=== PATIENT | female | born 1980 | race Caucasian/White ===

== ENCOUNTER 2016-06-01 06:23 | Inpatient (IN) | payer OTHER ==
[2016-06-01 06:47] VITALS: BMI 30.9
[2016-06-01] MEDS ORDERED: ONDANSETRON 4 MG/2ML 2 ML VIAL IV PRN ×2 (11:27→20:15)
[2016-06-01] MEDS ORDERED: DIPHENHYDRAMINE HCL 50 MG/1 ML VIAL IV PRN ×2 (11:27→20:15)
[2016-06-01] MEDS ORDERED: LACTATED RINGERS 1,000 ML IV PRN (11:27)
[2016-06-01] MEDS ORDERED: OXYTOCIN IN LR 500 ML IV ONE ×2 (11:27→12:22)
[2016-06-01] MEDS ORDERED: EPHEDRINE SULFATE 50 MG/ML 1ML VIAL IV PRN ×2 (11:27→20:15)
[2016-06-01] MEDS ORDERED: METOCLOPRAMIDE HCL 5 MG/ML 2ML VIAL IV PRN (11:27)
[2016-06-01] MEDS ORDERED: NALOXONE HCL 0.4 MG/ML VIAL IV PRN ×2 (11:27→20:15)
[2016-06-01] MEDS ORDERED: FENTANYL 100 MCG/2 ML VIAL IV PRN (11:30)
[2016-06-01] MEDS ORDERED: OXYTOCIN 10 UNITS/ML VIAL ONE (12:22)
[2016-06-01] MEDS ORDERED: MINERAL OIL 25 ML BOT ONE (12:22)
[2016-06-01] MEDS ORDERED: IV START KIT ONE (12:22)
[2016-06-01] MEDS ORDERED: LIDOCAINE Viscous 2% 15 ML UDCUP ONE (12:22)
[2016-06-01] MEDS ORDERED: PUMP TUBING ONE (12:22)
[2016-06-01] MEDS ORDERED: LIDOCAINE 1% (PRES FREE) 30 ML VIAL ONE (12:22)
[2016-06-01] MEDS ORDERED: LACTATED RINGERS 1,000 ML ONE (12:23)
[2016-06-01 13:14] LABS: HEMATOCRIT 36.3 % (37.0-47.0); HEMOGLOBIN 12.1 gm/l (12.0-16.0); MEAN CELL VOLUME 81.8 fl (81.0-99.0); MEAN CORPUSCULAR HEMOGLOBIN 27.3 pg (27.0-31.0); MEAN CORPUSCULAR HGB CONC 33.3 g/dl (33.0-37.0); RED CELL DISTRIBUTION WIDTH 12.2 % (11.5-14.5)
[2016-06-01] MEDS ORDERED: FENTANYL/ROPIVACAINE EPIDURAL 250 ML EP ONE (19:09)
[2016-06-01] MEDS ORDERED: EPIDURAL PUMP SET ONE (19:09)
[2016-06-01] MEDS ORDERED: EPIDURAL PROCEDURE TRAY ONE (19:28)
[2016-06-01] MEDS ORDERED: SODIUM CHLORIDE 0.9% 500 ML IV PRN (20:15)
[2016-06-01] MEDS ORDERED: NALBUPHINE HCL 20 MG/ML AMP IV PRN (20:15)
[2016-06-01] MEDS: FENTANYL/ROPIVACAINE EPIDURAL 250 ML EP SCH (20:15)
[2016-06-01] MEDS ORDERED: LACTATED RINGERS 500 ML IV PRN (20:15)
[2016-06-01] MEDS: OXYTOCIN IN LR 500 ML IV PRN ×3 (22:28→23:20)
--- NOTE | 2016-06-01 22:32 | PCMAN ---
OB Admission Note - History : 3 Term: 1 : 0 Abortions (S&E): 1 Livin Gestational Age (weeks): 41 Days (#/7): 0 Admit Cervical Dilation:: 4 Admit Cervical Effacement (%):: 80 Admit Station:: -2 Admit Presentaton:: cephalic Membrane Status: Intact Labor Onset (Date): 06/01/16 Labor Onset (Time): 05:00 Contractions: Yes Contraction Frequency:: 6-7 - Labs Blood Type: O (+) positive Rubella Status: Immune GBS Status: Negative Abnormal Labs: None - Review of Systems negative 12 system ROS - Problems (1) Active labor at term Status: Acute Code: [id number]/Plan: This is a late entry. Pt admitted around 0900 today. She was making consistent cervical change after 2 hours of ambulation and venu every 6- 7min. She was admitted for expectant management. Around 18:30 she was AROMed Epidural placed around 1900 IUPC placed at 20:30 - starting pit and titrating up to adequacy currently. Last check was /
[2016-06-02] MEDS ORDERED: MINERAL OIL 25 ML BOT TP ONE (03:59)
[2016-06-02] MEDS ORDERED: LANOLIN 50 APPLIC/7G TUBE TP PRN ×2 (04:52→09:30)
[2016-06-02] MEDS ORDERED: MEASLES,MUMPS&RUBELLA VACCINE 0.5 ML VIAL SUB-Q V ONE (04:52)
[2016-06-02] MEDS ORDERED: BENZOCAINE/MENTHOL 60 APPLIC/BOT TP PRN ×2 (04:52→09:30)
[2016-06-02] MEDS ORDERED: CALCIUM CARBONATE 500 MG TAB.CHEW PO PRN ×2 (04:52→09:30)
[2016-06-02] MEDS ORDERED: OXYCODONE HCL 5 MG TABLET PO PRN ×2 (04:52→09:30)
[2016-06-02] MEDS ORDERED: IBUPROFEN 800 MG TABLET PO PRN (04:52)
[2016-06-02] MEDS ORDERED: HYDROCODONE/ACETAMINOPHEN 5/325MG TABLET PO PRN ×2 (04:52→09:30)
[2016-06-02] MEDS ORDERED: FLU VACC 2016-17 (36MO-64Y)/PF 60 MCG/0.5 ML SYRINGE IM V ONE (05:23)
[2016-06-02] MEDS: IBUPROFEN 800 MG TABLET PO PRN ×3 (08:06→21:15)
[2016-06-02] MEDS ORDERED: DOCUSATE SODIUM 100 MG CAPSULE PO SCH (09:00)
--- NOTE | 2016-06-02 09:40 | PCMDEL ---
Delivery Note - Labor 1st stage (hr/min):: 6 hours 2nd stage (hr/min):: 3 hours 3rd stage (hr/min):: 14 min. Total (hr/min):: 9 hours 14 min. Pushed (hr/min):: 30 min. - Delivery Delivery (Date): 06/02/16 Delivery (Time): 04:12 Infant Gender: Female Length: 1 ft 7.75 in Presentation: Cephalic Position: OA Umbilical Cord: 3 Vessel, Nuchal Cord (x2) Delayed Cord Clamping:: Not Performed (Clamped and cut at perineum 2/2 irreducible nuchal chord) 1 Minute Total: 5 5 Minute Total: 9 Placenta:: Delivered intact at 04:26 EBL:: 400 Perineum:: 2nd degree laceration repaired in the usual fashion Suture:: 4-0 vicryl on an SH needle Anesthesia/Meds:: Epidural Length ROM:: AROM at 18:45 --> 9 hours 30 min. Comments:: Baby required resuscitation at the warmer for approx. 10 min. following delivery likely 2/2 the tight nuchal cord x2.
[2016-06-02] MEDS: DOCUSATE SODIUM 100 MG CAPSULE PO SCH (22:40)
[2016-06-03] MEDS: FENTANYL/ROPIVACAINE EPIDURAL 250 ML EP SCH ×3 (07:12→07:15)
[2016-06-03] MEDS: LACTATED RINGERS 1,000 ML IV SCH ×2 (07:14→07:15)
[2016-06-03] MEDS: DOCUSATE SODIUM 100 MG CAPSULE PO SCH (08:17)
[2016-06-03] MEDS: IBUPROFEN 800 MG TABLET PO PRN ×3 (08:17→20:13)
--- NOTE | 2016-06-03 10:39 | PDOC44 ---
- Subjective Day: 1 Reports Flatus, Reports Pain Tolerable, Reports , Reports Lochia Moderate, Reports Tolerating Clear Liquids, Reports Tolerating Regular Diet - Objective Temp Pulse Resp BP Pulse Ox 97.5 F 85 16 113/70 06/03/16 08:28 06/03/16 08:28 06/03/16 08:28 06/03/16 08:28 Current Medications Generic Name Dose Route Start Last Admin Trade Name Freq PRN Reason Stop Dose Admin Acetaminophen/Hydrocodone Bitart 1 - 2 tab 06/02/16 09:30 [place] 5/325 PO Q4H PRN Pain (Moderate) Benzocaine/Menthol 1 applic 06/02/16 09:30 Dermoplast TP PRN PRN Patient Comfort Calcium Carbonate/Glycine 500 - 1,000 mg 06/02/16 09:30 Tums PO BID PRN Indigestion Docusate Sodium 100 mg 06/02/16 09:30 06/03/16 08:17 Colace PO 100 mg DAILY AVILA Administration Emollient Ointment 1 applic 06/02/16 09:30 [id number] TP PRN PRN sore nipples Ropivacaine/Fentanyl/NS 250 mls @ 0 mls/hr 06/01/16 20:15 06/03/16 07:12 Fentanyl 2 Mcg/Ml + Ropivacaine 0.125% Ep Bag EP Not Given EPI [facility] Protocol Per Protocol Ibuprofen 800 mg 06/02/16 07:50 06/03/16 08:17 Motrin PO 800 mg Q6H PRN Administration Pain Oxycodone HCl 5 - 10 mg 06/02/16 09:30 Roxicodone PO Q3H PRN Pain (Severe) Sodium Chloride 10 ml 06/02/16 09:30 Normal Saline 10ml Flush IV PRN PRN IV Flush - Physical Exam General: Afebrile, No Acute Distress Psych/Mental Status: Mood/Affect Appropriate, Bonding Well Neurological: Alert, Oriented x 4 Lungs: Clear to Auscultation Bilaterally Cardiovascular: Regular Rate and Rhythm Breast: Nipples Intact Fundus: Firm, Midline, Below Umbilicus Extremities: Full ROM, No Edema, No Tenderness Skin: Normal Color, Warm, Dry, Intact, No Rash Wound [employer]GER: Dressing Clean/Dry/Intact, Well Approximated - Problems:Assessment/Plan (1) care following vaginal delivery Status: AcuteAssessment/Plan: 1. Routine care. 2. Contraception: condoms 3. Feeding: 4. Disposition: Home 5. d/c is held up for a 48 hour r/o on baby following a fever spiked yesterday around 21:00. likely d/c on 06/04
[2016-06-04] MEDS: IBUPROFEN 800 MG TABLET PO PRN ×2 (02:17→09:04)
[2016-06-04 07:23] VITALS: BP 119/72
[2016-06-04] MEDS: DOCUSATE SODIUM 100 MG CAPSULE PO SCH (09:04)
--- NOTE | 2016-06-04 10:39 | PDOC39B ---
Hospital Course: ADMIT DATE: 06/01/16 DISCHARGE DATE: 06/04/16 ADMISSION DIAGNOSES: Latent Labor PROCEDURES: Normal vaginal delivery, Epidural, 2nd degree perineal laceration repair HISTORY OF PRESENT ILLNESS: 35 year old G3 T1 L1 at 41 weeks 1 days presenting with latent labor who made change of 2cm (from 2cm to 4cm) after 2 hours of walking. HOSPITAL COURSE: The patient delivered without significant complication. Stay was extended 2/2 a 48 hour sepsis r/o because of temperature instability in the baby girl. By day of discharge the patient is ambulating, eating, voiding, and passing flatus without difficulty. Pain is controlled and lochia is appropriate. She is - Physical Exam Vital Signs: Temp Pulse Resp BP Pulse Ox 97.5 F 82 16 119/72 06/04/16 07:20 06/04/16 07:20 06/04/16 07:20 06/04/16 07:20 General: Afebrile, No Acute Distress Neurological: Alert, Oriented x 4 Lungs: Clear to Auscultation Bilaterally Cardiovascular: Regular Rate and Rhythm Fundus: Firm, Midline Extremities: Full ROM, No Edema Skin: Normal Color, Warm, Dry, Intact, No Rash Wound: Dressing Clean/Dry/Intact, Well Approximated - Discharge Diagnosis (1) care following vaginal delivery Status: AcuteAssessment/Plan: 1. Routine care. 2. Contraception: condoms 3. Feeding: 4. Disposition: Home 5. d/c is held up for a 48 hour r/o on baby following a fever. d/c today on . - Discharge Plan Instruction Forms: Vaginal Discharge Instructions Prescriptions: Docusate Sodium [COLACE 100 MG CAPSULE (SHF)] 100 mg PO BID PRN #30 cap PRN Reason: Constipation Ibuprofen [Motrin] 800 mg PO Q6H PRN #60 tablet PRN Reason: Pain
== END 2016-06-04 10:43 | disposition home or self-care (01) | DRG 768 ==
LOC: FBC 06:23 → FBCOUT 06:23 → FBC 11:54
PROVIDERS: ADMIT Family Medicine; ATTEND Family Medicine
PROC: 10H00YZ Insertion of Other Device into Products of Conception, Open Approach (ICD-10-PCS; 2016-06-01)
PROC: 00HU33Z Insertion of Infusion Device into Spinal Canal, Percutaneous Approach (ICD-10-PCS; 2016-06-01)
PROC: 10907ZC Drainage of Amniotic Fluid, Therapeutic from Products of Conception, Via Natural or Artificial Opening (ICD-10-PCS; 2016-06-01)
PROC: 10E0XZZ Delivery of Products of Conception, External Approach (ICD-10-PCS; principal; 2016-06-02)
PROC: 0KQM0ZZ Repair Perineum Muscle, Open Approach (ICD-10-PCS; 2016-06-02)
DX: O48.0 Post-term pregnancy (principal); Z3A.41 41 weeks gestation of pregnancy; Z37.0 Single live birth; O70.1 Second degree perineal laceration during delivery; O69.1XX0 Labor and delivery complicated by cord around neck, with compression, not applicable or unspecified